=== PATIENT | male | born 1995 | race Hispanic/Latino ===

== ENCOUNTER 2024-03-23 11:09 | Emergency (ER) | payer SELFPAY ==
[~2024-03-23] VITALS: Ht 167.6 cm; Wt 77.0 kg
[2024-03-23 11:15] VITALS: BP 133/78
[2024-03-23 11:31] VITALS: BP 117/73
[2024-03-23 12:30] VITALS: BP 133/73
[2024-03-23 13:01] VITALS: BP 106/56
[2024-03-23 13:31] VITALS: BP 119/70
[2024-03-23] MEDS ORDERED: KETOROLAC TROMETHAMINE 30 MG/ML SDV IM ONE (13:35)
== END 2024-03-23 13:35 | disposition home or self-care (01) | DRG 563 ==
LOC: ED 11:09
DX: S93.402A Sprain of unspecified ligament of left ankle, initial encounter (principal); X50.0XXA Overexertion from strenuous movement or load, initial encounter; Y93.68 Activity, volleyball (beach) (court); Y92.007 Garden or yard of unspecified non-institutional (private) residence as the place of occurrence of the external cause